=== PATIENT | female | born 1995 | race Caucasian/White ===

== ENCOUNTER 2021-05-05 17:55 | Emergency (ER) | payer OTHER ==
[~2021-05-05] VITALS: Ht 157.5 cm; Wt 52.2 kg
[2021-05-05] MEDS ORDERED: MACRODANTIN100 MG PO (22:56)
== END 2021-05-05 23:47 | disposition home or self-care (01) ==
LOC: ER 17:55
DX: O26.891 Other specified pregnancy related conditions, first trimester (principal); R10.2 Pelvic and perineal pain; K59.09 Other constipation; Z34.01 Encounter for supervision of normal first pregnancy, first trimester

== ENCOUNTER 2021-05-29 07:44 | Emergency (ER) | payer OTHER ==
[~2021-05-29] VITALS: Ht 157.5 cm; Wt 51.7 kg
[~2021-05-29 07:44] MED LIST: MACRODANTIN100 MG PO
[2021-05-29] MEDS ORDERED: PRENATAL + DHA1 EAC1 (07:51)
[2021-05-29] MEDS ORDERED: ZITHROMAX200 MG PO (11:55)
== END 2021-05-29 12:32 | disposition home or self-care (01) ==
LOC: ER 07:44
DX: O26.891 Other specified pregnancy related conditions, first trimester (principal); R10.2 Pelvic and perineal pain; R30.0 Dysuria; Z3A.12 12 weeks gestation of pregnancy

== ENCOUNTER 2021-07-11 22:14 | Emergency (ER) | payer OTHER ==
[~2021-07-11] VITALS: Ht 157.5 cm; Wt 52.2 kg
[~2021-07-11 22:14] MED LIST changes: +PRENATAL + DHA1 EAC1; +ZITHROMAX200 MG PO
[2021-07-12] MEDS ORDERED: ZOFRAN4 MG PO (03:23)
[2021-07-12] MEDS ORDERED: PEPCID40 MG PO (03:23)
== END 2021-07-12 03:35 ==
LOC: ER 22:14
DX: O21.8 Other vomiting complicating pregnancy (principal); Z3A.18 18 weeks gestation of pregnancy

== ENCOUNTER 2021-10-24 17:18 | Emergency (ER) | payer OTHER ==
[~2021-10-24] VITALS: Ht 157.5 cm; Wt 59.4 kg
[~2021-10-24 17:18] MED LIST changes: +PEPCID40 MG PO; +ZOFRAN4 MG PO
[2021-10-24] MEDS ORDERED: ZITHROMAX200 MG PO (19:51)
== END 2021-10-24 20:09 | disposition home or self-care (01) ==
LOC: ER 17:18
DX: B34.9 Viral infection, unspecified (principal); B96.0 Mycoplasma pneumoniae [M. pneumoniae] as the cause of diseases classified elsewhere; Z20.822 Contact with and (suspected) exposure to COVID-19

== ENCOUNTER 2021-11-28 18:25 | Inpatient (IN) | payer OTHER ==
[~2021-11-28] VITALS: Ht 157.5 cm; Wt 62.6 kg
== END 2021-12-01 10:41 | disposition home or self-care (01) | DRG 807 ==
LOC: OB/GYN 18:25 → LDR 18:25 → OB/GYN 11-29 02:26
PROVIDERS: ADMIT Obstetrics & Gynecology; ATTEND Obstetrics & Gynecology
PROC: 10E0XZZ Delivery of Products of Conception, External Approach (ICD-10-PCS; principal; 2021-11-28)
PROC: 4A1HXFZ Monitoring of Products of Conception, Cardiac Rhythm, External Approach (ICD-10-PCS; 2021-11-28)
DX: O99.824 Streptococcus B carrier state complicating childbirth (principal); Z37.0 Single live birth; Z3A.38 38 weeks gestation of pregnancy

== ENCOUNTER 2023-06-09 17:09 | Emergency (ER) | payer OTHER ==
[~2023-06-09] VITALS: Ht 154.9 cm; Wt 54.4 kg
== END 2023-06-09 18:32 | disposition home or self-care (01) ==
LOC: ER 17:09
DX: R53.81 Other malaise (principal); J03.90 Acute tonsillitis, unspecified

== ENCOUNTER → 2024-06-10 15:56 | Outpatient (CLI) | payer OTHER | END | disposition home or self-care (01) | LOC: PRENATAL 15:56 | PROVIDERS: ATTEND Obstetrics & Gynecology Maternal & Fetal Medicine | DX: O35.9XX0 Maternal care for (suspected) fetal abnormality and damage, unspecified, not applicable or unspecified (principal); O35.3XX0 Maternal care for (suspected) damage to fetus from viral disease in mother, not applicable or unspecified; O44.02 Complete placenta previa NOS or without hemorrhage, second trimester; Z3A.21 21 weeks gestation of pregnancy ==

== ENCOUNTER 2024-08-04 20:47 | Outpatient (CLI) | payer OTHER ==
[~2024-08-04] VITALS: Ht 154.9 cm; Wt 66.2 kg
[2024-08-04 19:46] VITALS: BP 105/66
[2024-08-04] MEDS ORDERED: FOLIC ACID20 MG (21:20)
[2024-08-04] MEDS ORDERED: RINGERS SOLUTION,LACTATED 1,000 ML IV SCH (21:30)
[2024-08-04 21:50] LABS: HEMATOCRIT 29.4 % (36.0-45.00); HEMOGLOBIN 10.2 g/dL (12.0-15.00); MEAN CELL VOLUME 82.7 fL (80.00-100.00); MEAN CORPUSCULAR HEMOGLOBIN 28.8 pg (27.00-32.0); MEAN CORPUSCULAR HGB CONC 34.9 g/dl (32.0-36.0); PLATELET COUNT 328 K/uL (150-450); RED BLOOD COUNT 3.55 M/uL (4.00-6.00); RED CELL DISTRIBUTION WIDTH 13.4 % (11.5-14.5)
[2024-08-04 22:06] LABS: URINE APPEARANCE Clear; URINE BACTERIA 788.6 uL (0.0-1933); URINE BILIRRUBIN Negative (NEGATIVE); URINE BLOOD Negative; URINE COLOR Yellow; URINE GLUCOSE Negative (NEGATIVE); URINE KETONE Negative (NEGATIVE); URINE LEUKOCYTE Small; URINE NITRATE Negative; URINE PROTEIN Negative (NEGATIVE); URINE WBC 50.8 uL (0.0-23.2)
[2024-08-04 22:08] LABS: URINE RBC 1.8 uL (0.0-20.8)
[2024-08-04] MEDS ORDERED: CEFAZOLIN SODIUM 1,000 MG VIAL IV SCH (22:40)
[2024-08-04 23:25] VITALS: BP 93/53
[2024-08-05 04:11] VITALS: BP 94/57
[2024-08-05 07:23] VITALS: BP 100/64; O2SAT 99
[2024-08-05 12:09] VITALS: BP 102/63; O2SAT 98
[2024-08-05 12:59] VITALS: BP 102/63
== END 2024-08-05 13:03 | disposition home or self-care (01) ==
LOC: OBS/DEL 20:47
PROVIDERS: ATTEND Obstetrics & Gynecology
DX: O23.43 Unspecified infection of urinary tract in pregnancy, third trimester (principal); N39.0 Urinary tract infection, site not specified; O26.849 Uterine size-date discrepancy, unspecified trimester; O36.8199 Decreased fetal movements, unspecified trimester, other fetus; O60.00 Preterm labor without delivery, unspecified trimester; Z3A.30 30 weeks gestation of pregnancy

== ENCOUNTER 2024-09-23 14:34 | Outpatient (CLI) | payer OTHER ==
[~2024-09-23 14:34] MED LIST changes: +FOLIC ACID20 MG
== END 2024-09-23 14:35 | disposition home or self-care (01) ==
LOC: PRENATAL 14:34
PROVIDERS: ATTEND Obstetrics & Gynecology Maternal & Fetal Medicine
DX: O26.849 Uterine size-date discrepancy, unspecified trimester (principal); O36.8199 Decreased fetal movements, unspecified trimester, other fetus; O99.019 Anemia complicating pregnancy, unspecified trimester; Z3A.36 36 weeks gestation of pregnancy

== ENCOUNTER 2024-09-27 11:43 | Inpatient (IN) | payer OTHER ==
[~2024-09-27] VITALS: Ht 152.4 cm; Wt 71.2 kg
[2024-09-27 11:04] VITALS: BP 112/77
[2024-09-27] MEDS ORDERED: RINGERS SOLUTION,LACTATED 1,000 ML IV SCH (12:00)
[2024-09-27 12:26] LABS: PH,URINE 6.5 (5.0-8.0); URINE APPEARANCE Clear; URINE BILIRRUBIN Negative (NEGATIVE); URINE BLOOD Negative; URINE COLOR Yellow; URINE KETONE Trace (NEGATIVE); URINE LEUKOCYTE Negative; URINE NITRATE Negative; URINE PROTEIN Trace (NEGATIVE)
[2024-09-27 12:27] LABS: HEMATOCRIT 32.3 % (36.0-45.00); HEMOGLOBIN 11.1 g/dL (12.0-15.00); MEAN CELL VOLUME 81.2 fL (80.00-100.00); MEAN CORPUSCULAR HEMOGLOBIN 27.9 pg (27.00-32.0); MEAN CORPUSCULAR HGB CONC 34.3 g/dl (32.0-36.0); PLATELET COUNT 290 K/uL (150-450); RED BLOOD COUNT 3.98 M/uL (4.00-6.00); RED CELL DISTRIBUTION WIDTH 14.5 % (11.5-14.5)
[2024-09-27 12:30] LABS: URINE BACTERIA 292.2 uL (0.0-1933); URINE EPITHELIAL CELLS 21.9 uL (0.0-38.8); URINE WBC 20.2 uL (0.0-23.2)
[2024-09-27 12:34] LABS: URINE GLUCOSE 100 MG/DL (NEGATIVE)
[2024-09-27 13:02] LABS: ALBUMIN 2.7 gm/dL (3.4-5.0); BILIRUBIN TOTAL 0.26 mg/dL (0.3-1.2); CALCIUM 8.8 mg/dL (8.5-10.1); CREATININE SERUM 0.44 mg/dL (0.55-1.02); GFR 170.26; GLOBULINA 3.8 G/DL (2.4-3.5); POTASSIUM 3.77 mEq/L (3.5-5.1); TOTAL PROTEIN 6.5 gm/dL (6.4-8.2)
[2024-09-27 13:15] LABS: INR < 0.93; PARTIAL THROMBOPLASTIN TIME 23.5 SECONDS (22.0-34.0); PROTHROMBIN TIME 9.8 SECONDS (9.0-11.5)
[2024-09-27 15:22] VITALS: BP 108/72
[2024-09-27 15:24] VITALS: BP 108/72
[2024-09-27 20:00] VITALS: BP 134/80
[2024-09-27] MEDS ORDERED: MEPERIDINE HCL/PF 50 MG/ML VIAL IV ONE (22:30)
[2024-09-27] MEDS ORDERED: PROMETHAZINE HCL 25 MG/ML AMPUL IV ONE (22:30)
[2024-09-27 23:39] VITALS: BP 124/67
[2024-09-28] VITALS (11 sets, daily range): BP systolic 90–135; BP diastolic 38–88
[2024-09-28] MEDS ORDERED: MORPHINE SULFATE 4 MG/ML VIAL IV ONE (06:00)
[2024-09-28] MEDS ORDERED: OXYTOCIN 500 ML IV SCH (06:00)
[2024-09-28] MEDS ORDERED: IBUprofen 400 MG TABLET PO PRN (11:00)
[2024-09-28] MEDS ORDERED: LIDOCAINE HCL 1% 10ML VIAL IJ ONE (11:15)
[2024-09-28] MEDS ORDERED: OXYTOCIN 1,000 ML IV ONE (11:15)
[2024-09-28] MEDS ORDERED: CHLORHEXIDINE GLUCONATE 120 ML BOTTLE TOP ONE (11:15)
[2024-09-28] MEDS ORDERED: ERYTHROMYCIN BASE OPHT 1GM EACH TUBE OP ONE (11:15)
[2024-09-28 17:51] LABS: HEMATOCRIT 32.8 % (36.0-45.00); HEMOGLOBIN 10.8 g/dL (12.0-15.00); MEAN CELL VOLUME 82.9 fL (80.00-100.00); MEAN CORPUSCULAR HEMOGLOBIN 27.3 pg (27.00-32.0); PLATELET COUNT 287 K/uL (150-450); RED BLOOD COUNT 3.95 M/uL (4.00-6.00); RED CELL DISTRIBUTION WIDTH 14.5 % (11.5-14.5)
[2024-09-29] VITALS: BP 108/66
[2024-09-29 08:25] VITALS: BP 110/74
[2024-09-29] MEDS ORDERED: PNV,CALCIUM 72/IRON/FOLIC ACID 1 TAB TABLET PO SCH (09:00)
[2024-09-29 16:00] VITALS: BP 137/83
[2024-09-29 19:57] VITALS: BP 105/72
[2024-09-30] VITALS: BP 105/66
[2024-09-30 08:43] VITALS: BP 137/74
== END 2024-09-30 13:50 | disposition home or self-care (01) | DRG 807 ==
LOC: OBS/DEL 11:43 → OB/GYN 14:50 → OBS/DEL 14:50 → LDR 14:50 → OB/GYN 09-28 10:35
PROVIDERS: Specialist; ADMIT Obstetrics & Gynecology; ATTEND Obstetrics & Gynecology
PROC: BY4FZZZ Ultrasonography of Third Trimester, Single Fetus (ICD-10-PCS; 2024-09-27)
PROC: 4A1HXCZ Monitoring of Products of Conception, Cardiac Rate, External Approach (ICD-10-PCS; 2024-09-27)
PROC: 10E0XZZ Delivery of Products of Conception, External Approach (ICD-10-PCS; principal; 2024-09-28)
PROC: 0KQM0ZZ Repair Perineum Muscle, Open Approach (ICD-10-PCS; 2024-09-28)
DX: O70.1 Second degree perineal laceration during delivery (principal); Z37.0 Single live birth; Z3A.37 37 weeks gestation of pregnancy; Z20.822 Contact with and (suspected) exposure to COVID-19